=== PATIENT | male | born 1980 | race Caucasian/White ===

== ENCOUNTER 2022-04-07 13:50 | Emergency (ER) | payer OTHER, SELFPAY ==
[2022-04-07 14:07] VITALS: BP 159/100; PULSE 95; RESP 16; TEMP 36.7; O2SAT 96; BMI 32.1
--- NOTE | 2022-04-07 14:39 | USCV_ITS ---
Agustin Jc Age: 41 Gender: M : 1980 Exam Date: 04/07/2022 15:17 Ordering Phys: Tiesha Da Silva Technologist: DIPESH Exam Location: [facility] – [place] Indication: Swelling redness HISTORY: Lower extremity swelling. Fall 2-3 weeks ago. Rt foot swelling bruising but no pain PROCEDURES: Venous duplex imaging was performed in only the right lower extremity. The following venous structures were evaluated: common femoral vein, profunda vein, proximal portion of the greater saphenous vein, superficial femoral vein, and the popliteal vein. In addition, the posterior tibial and peroneal trunk were evaluated. FINDINGS: Normal 2-D Doppler and augmentation and compressibility throughout the lower extremity venous structures. Additional imaging through the proximal calf veins also reveals no thrombus. Limited evaluation of the greater saphenous vein is patent with no thrombus.. CONCLUSIONS No evidence of right lower extremity DVT. Incidental Lymph node right groin with normal fatty hilum Asad Leo MD (Electronically Signed) Final Date: 07 April 2022 16:49 S
--- NOTE | 2022-04-07 14:40 | ED_ITS ---
HPI - Extremity Problem General: Chief complaint: Fall Stated complaint: Rt foot swelling Time Seen by Provider: 04/07/22 14:18 Source: patient Mode of arrival: ambulatory Limitations: no limitations History of Present Illness: Patient is a 41-year-old male who presents to ED today with a complaint of redness and swelling to his right lower extremity. [place] thinks he stumbled and struck the right lower leg on something. He does remember two small abrasions to anterior tibial region. He states he has continued to walk on extremity without difficulty and does not endorse any bony tenderness. He states over the past several days he has noticed the leg becoming swollen, red, and has noticed some bruising to his ankle/foot which he thought was odd as he has no pain here nor did he ever injure that particular area. No chest pain, SOB, difficulty breathing. MD Complaint: extremity swelling Onset (ago): day(s) Location: right and lower extremity Radiation: none Relieving factors: nothing Exacerbating factors: nothing Associated symptoms: Reports no associated symptoms; Deny chest pain or fever(s) Review of Systems Const: Denies: fever(s), chills, body aches, fatigue or malaise Card: Denies: chest pain Resp: Denies: dyspnea GI: Denies: abdominal pain Musc: Reports: extremity pain and extremity swelling (R LE); Denies: neck pain, back pain, joint pain, joint swelling, joint redness, joint warmth, joint stiffness or limited range of motion Skin/Breast: Reports: other (redness to R LE) Neuro: Denies: headache(s), numbness in extremities, weakness in extremities or sensory changes Physical Exam Const: COMMON NORMALS: no acute distress, patient oriented x3, no limitations and alert GENERAL APPEARANCE: cooperative ORIENTATION/CONSCIOUSNESS: Yes awake, Yes oriented to person, Yes oriented to place and Yes oriented to time Resp: COMMON NORMALS: normal respiratory effort and clear to auscultation bilaterally AUSCULTATION: clear to auscultation bilaterally Cardio: COMMON NORMALS: regular rate and regular rhythm RATE: regular rate RHYTHM: regular rhythm Extremity: COMMON NORMALS: full ROM, capillary refill normal and no calf tenderness GENERAL: Yes normal exam except as noted RIGHT LOWER EXTREMITY: Yes lower leg OTHER: pt has notable swelling to R LE when compared to L; he has redness and warmth affecting mainly the anterior aspect of R lower leg; negative Delvin's; he has some minor ecchymosis to R lateral ankle and several toes but there is no bony tenderness here; patient ambulates normal; extremity/foot is warm to touch with palpable DP/PT pulses and normal cap refill Neuro: COMMON NORMALS: patient oriented x3, moves all extremities, no focal motor deficits and no sensory deficits noted SENSORIUM/ORIENTATION: Yes alert, Yes oriented to person, Yes oriented to place and Yes oriented to time Course Vital Signs: Vital signs: Vital Signs Temperature 98.0 F 04/07/22 14:07 Pulse Rate 95 04/07/22 14:07 Respiratory Rate 16 04/07/22 14:07 Blood Pressure 159/100 04/07/22 14:07 Pulse Oximetry 96 04/07/22 14:07 MDM - Extremity (Nontraumatic) Medical Decision Making US negative for DVT. Given history of previous abrasions I think cellulitis most likely is the etiology for his swelling/redness/warmth. His vitals are stable. Labs not performed as it overall would be unlikely to change room attendant. He will be placed on Clindamycin and recommend he follow up with PCP in 3-5 days for re- evaluation. Return to ED precautions given regarding worsening symptoms despite antibiotic therapy. Discharge Plan Discharge Patient Disposition: Home Clinical Impression: Cellulitis of right lower extremity Condition: Stable Prescriptions: New clindamycin HCl 300 mg capsule 300 mg PO Q6H 7 Days Qty: 28 0RF Discharge Orders: Discharge ED (Routine); Ordered 04/07/22 Ordered By: Tiesha Da Silva Patient Instructions: Cellulitis (ED) Coding Level of Care Code ED Ore Feeder for Myranda Fwd Exam Detailed
== END 2022-04-07 16:02 | disposition home or self-care (01) ==
PROVIDERS: Emergency Provider Physician Assistant
DX: L03.115 Cellulitis of right lower limb (principal)
CPT/HCPCS: 93971; 99283